=== PATIENT | male | born 1980 | race Caucasian/White ===

== ENCOUNTER 2016-11-05 10:35 | Emergency (ER) | payer OTHER ==
--- NOTE | ~2016-11-05 | CT16 ---
STS. [facility] A Service of [facility] RADIOLOGY TEXT RESULTS PATIENT: CARLOS CHAPARRO LOCATION: SED : 78 UNIT #: [id number] AGE: [address]: Estrella Mehta MD SEX: M ORDER DR: [id number] [address] [address] [id number] MR#: [id number] Acc #: [id number] NAME: CARLOS CHAPARRO. : 1980 SEX: M STUDY DATE/TIME: 11/05/2016 11:57 UNIT: SED ROOM: STUDY DESCRIPTION: CT Angio Chest for PE Attending Physician: Estrella Mehta M.D. Ordering Physician: Estrella Mehta M.D. Primary Care Physician: Primary Care Physician No MEDICAL IMAGING REPORT This report is preliminary unless electronic signature is present. ] EXAM Chest CT PE protocol with contrast 11/05/2016 INDICATIONS 36-year-old male with chest pain with deep breath. Right shoulder pain, trunk pain, with movement for 2 days. TECHNIQUE Contrast enhanced CT scan chest PE protocol was performed with 3-D reformats. No comparisons. The CT exam was performed with one or more of the following radiation dose reduction techniques: automatic exposure control, adjustment of mA and/or kV according to patient size, and iterative reconstruction. FINDINGS CT chest IV bolus is suboptimal. The majority of the bolus is in the systemic arterial system. The aorta demonstrates no aneurysm or dissection. There is no large filling defect in the main left or right central pulmonary arteries but peripherally the arteries are not well opacified or assessed and the presence or absence of PE cannot be ascertained. If clinical suspicion persists for PE VQ scan could be pursued for further assessment. Included thyroid unremarkable. No adenopathy. No pericardial effusion. Upper abdomen demonstrates uncomplicated cholelithiasis. Lungs are clear. No effusion. No pneumothorax. Osseous structures demonstrate spinal degenerative change. No suspicious bone lesion. IMPRESSION 1. Suboptimal IV contrast bolus. There is no aortic aneurysm or STS. [facility] A Service [facility] RADIOLOGY TEXT RESULTS PATIENT: CARLOS CHAPARRO [id number] [birth year] UNIT #: [id number] AGE: [address]: Estrella Mehta MD SEX: M ORDER DR: dissection. There is no large filling defect in the left main or right central pulmonary arteries but distally the pulmonary arteries are not well opacified or assessed. If clinical suspicion for PE persists, VQ scan could be pursued for further assessment. 2. Lungs are clear. 3. Upper abdomen demonstrates uncomplicated cholelithiasis. Dictated by... Jaime Morrison M.D. THIS IS AN ELECTRONICALLY VERIFIED REPORT Jaime Morrison M.D. at 11/06/2016 1:51 PM BINA/akhil TD: 11/06/2016 08:16 JOB #: [id number] MEDICAL IMAGING REPORT Page 1 of 1
--- NOTE | ~2016-11-05 | EKG ---
PATIENT: CARLOS CHAPARRO UNIT #: [id number] Ventricular Rate: 99 BPM Atrial Rate: 99 BPM P-R Interval: 130 ms QRS Duration: 86 ms Q-T Interval: 362 ms QTC Calculation(Bezet): 464 ms P [place]: 22 degrees Calculated R [place]: -11 degrees Calculated T [place]: 15 degrees Diagnosis Line: Normal sinus rhythm with sinus arrhythmia Diagnosis Line: Normal ECG Diagnosis Line: No previous ECGs available Diagnosis Line: Confirmed by MELISSA HUNTER MD ([id number]) on Diagnosis Line: 11/08/2016 11:18:10 AM INTERPRETING MD: DALE CHILD
[2016-11-05] MEDS ORDERED: NO MEDICATIONS (10:52)
[2016-11-05 11:25] LABS: BASOPHIL# 0.1 X10e3 (0-0.3); EOSINOPHIL# 0.4 X10e3 (0-0.7); EOSINOPHIL% 3.1 % (0.0-7.0); HEMATOCRIT 47.5 % (38.0-50.0); HEMOGLOBIN 16.3 gm/dL (13.0-16.0); LYMPHOCYTE# 2.6 X10e3 (1.0-3.5); LYMPHOCYTE% 22.3 % (17.0-45.0); MEAN CELL VOLUME 87.1 FL (83-96); MEAN CORPUSCULAR HEMOGLOBIN 29.9 PG (28-34); MEAN CORPUSCULAR HGB CONC 34.3 g/dL (30-36); MEAN PLATELET VOLUME 9.6 FL (6.5-11.5); MONOCYTE# 1.1 X10e3 (0-1.0); MONOCYTE% 9.5 % (3.0-12.0); NEUTROPHIL# 7.4 X10e3 (1.5-7.1); NEUTROPHIL% 64.1 % (40-75); PLATELET COUNT 246 X10e3 (140-420); RED BLOOD COUNT 5.45 X10e (3.90-5.60); RED CELL DISTRIBUTION WIDTH 13.8 % (11.0-15.5); WHITE BLOOD COUNT 11.6 X10e3 (4.0-10.5)
[2016-11-05 11:26] LABS: DIFF IND NO
[2016-11-05 11:41] LABS: BILIRUBIN, DIRECT 0.1 mg/dL (0.0-0.2); BILIRUBIN,INDIRECT 0.7 mg/dL (0.0-0.9); BILIRUBIN,TOTAL 0.8 mg/dL (0.2-2.0); BUN/CREATININE RATIO 17.77; CALCIUM SERUM 8.2 mg/dL (8.4-10.2); CREATININE SERUM 0.9 mg/dL (0.6-1.4); GLOM FILT RATE Estimated 108.7 mL/min (>60); POTASSIUM 3.7 mmol/L (3.5-5.1); PROTEIN TOTAL SERUM 7.1 g/dL (6.0-8.3)
[2016-11-06 16:51] LABS: POC - CKMB 1.3 ng/mL (0.0-7.9); POC - MYOGLOBIN 99.9 ng/mL (0.0-169.0); POC - TROPONIN <0.05 ng/mL (<=0.05)
[2016-11-06 16:55] LABS: POC - CKMB 1.1 ng/mL (0.0-7.9)
[2016-11-06 16:56] LABS: POC - MYOGLOBIN 89.7 ng/mL (0.0-169.0); POC - TROPONIN <0.05 ng/mL (<=0.05)
== END 2016-11-05 14:30 | disposition home or self-care (01) ==
LOC: SED 10:35
PROVIDERS: Student in an Organized Health Care Education/Training Program
DX: R09.1 Pleurisy (principal); I10 Essential (primary) hypertension; Z98.890 Other specified postprocedural states
CPT/HCPCS: 36415; 71275; 80048; 80076; 82553; 83874; 84484; 85025; 85379; 93005; 96374; 99285; J1885; Q9967